=== PATIENT | female | born 1965 | race Caucasian/White ===

== ENCOUNTER 2021-02-14 07:52 | Day surgery (SDC) | payer OTHER ==
[~2021-02-14] VITALS: Ht 162.6 cm; Wt 75.0 kg
[2021-02-14 08:30] VITALS: BP 175/102
--- NOTE | 2021-02-14 08:30 | NUR ---
PATIENT AMBULATORY TO ROOM 290 WITH STEADY GAIT. CONSENT OBTAINED. VS OBTAINED. DR HDZ NOTIFIED. NEW ORDERS RECEIVED. ADMISSION ASSESSMENT COMPLETED AT THIS TIME. IV ESTABLISHED AND LABS SENT FOR REFERENCE. ORIENTED PATIENT TO ROOM AND UNIT. CALL LIGHT IN REACH. WILL CONTINUE TO MONITOR.
[2021-02-14] MEDS ORDERED: CLONIDINE0.1 MG PO (09:20)
[2021-02-14] MEDS ORDERED: NALTREXONE50 MG PO (09:21)
[2021-02-14] MEDS ORDERED: KLONOPIN0.5 MG PO (09:21)
--- NOTE | 2021-02-14 09:56 | NUR ---
REPORT RECEIVED FROM MUSTAPHA RODRIGUEZ. PATIENT STATED SHE IS COLD AND SLEEPY. PROVIVED PATIENT WITH A WARM BLANKET. PATIETN DENIES ANY OTHER NEEDS AT THIS TIME. CALL LIGHT IN REACH.
--- NOTE | 2021-02-14 10:31 | NUR ---
DR. HDZ AWARE OF VS. NO NEW ORDERS RECEIVED AT THIS TIME.
[2021-02-14 10:35] VITALS: BP 112/67
[2021-02-14 11:29] LABS: HEMOGLOBIN 12.7 g/dl (12.0-16.0); IMMATURE GRANULOCYTES 0.2 % (0.0-5.0); MEAN CELL VOLUME 97.5 fL CALC (80.0-100.0); MEAN CORPUSCULAR HGB 31.8 pG CALC (26.0-32.0); MEAN CORPUSCULAR HGB CONC 32.6 g/dL CAL (32.0-36.0); NEUT# 2.95 thou/uL (2.00-7.15); RED CELL DISTRI WIDTH 12.6 % (11.5-15.5)
[2021-02-14 11:30] LABS: ALBUMIN 3.8 g/dL (3.2-5.0); ALKALINE PHOSPHATASE 43 u/l (38-126); ANION GAP 9 (6-22 (CALC)); BILIRUBIN, TOTAL 0.3 mg/dL (0.0-1.4); BUN 17 mg/dL (7-17); BUN/CREATININE RATIO 21 (12-20 (CALC)); CARBON DIOXIDE 27 mmol/l (22-30); CHLORIDE 108 mmol/l (95-108); CREATININE 0.8 mg/dL (0.5-1.0); GFR > 60 ML/MIN (>=60 (CALC)); GFR FOR AFR.AMER. > 60 ML/MIN (>=60 (CALC)); POTASSIUM 4.5 mmol/l (3.5-5.1); SGOT/AST 21 u/l (14-36); SODIUM 139 mmol/l (137-146); TOTAL PROTEIN 6.9 g/dL (6.3-8.2)
--- NOTE | 2021-02-14 11:55 | NUR ---
PATIENT IS SLEEPING IN BED WITH NO DISTRESS NOTED. CALL LIGHT IN REACH.
--- NOTE | 2021-02-14 12:37 | NUR ---
PATIENT WENT VIA BED BY TO TRAUMA ROOM.
[2021-02-14 16:55] VITALS: BP 121/57
--- NOTE | 2021-02-14 16:55 | NUR ---
PATIENT CAME FROM TRAUMA ROOM VIA BED BY AUREA FISCHER NURSE. REPORT RECEIVED FROM AUREA. PER DR. HDZ OBTAIN X1 VS NOW AND LET PATIENT REST. PATIENT IS RESTLESS IN BED KEEPS MOVING ARMS. PATIENT IS DROWSY. BED ALARM PLACE.
--- NOTE | 2021-02-14 17:48 | NUR ---
PATIENT IS RESTLESS IN BED TRYING TO GET OUT OF THE BED AND IS UNSTEADY. GREEN BRIEF IN PLACE. PATIENT KEEPS SETTING THE BED ALARM. MEDICATED PATIENT WITH ATIVAN. BED ALARM IN PLACE.
--- NOTE | 2021-02-14 18:20 | NUR ---
PATIENT SETOFF THE BED ALARM. PATIENT STATED SHE WANTS TO PEE. ASSISTANT PORTFOLIO MANAGER AND I ASSISTED PATIENT TO THE BSC. PATIENT IS UNSTEADY. PATIENT UNABLE TO VOID TURN ON WATER FROM THE SINK. WE ASSISTED PATIENT BACK IN BED. PATIENT DID NOT VOID. BED ALARM IN PLACE.
[2021-02-14 19:15] VITALS: BP 136/81
--- NOTE | 2021-02-14 19:25 | NUR ---
PATIENT CONT TO BE RESTLESS. SETTING OFF BED ALRM AND ATTEMPTING TO GET OOB SEVERAL TIMES. ASSIST TO BSC TO VOID 500CC OF YELLOW URINE. VERY UNSTEADY ON HER FEET. THRASHING ABOUT IN BED. VS TAKEN AND STABLE-BP 136/81, PULSE-88, RESP 18 AND STABLE WITH O2 SAT OF 99%. SA;INE LOCK TO LEFT HAND AND RIGHT FOREARMINTACT AND FLUSHED. CIVIL ENGINEER HELPER AT BEDSIDE. WILL CONT TO MONITOR.
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
[2021-02-14 21:35] VITALS: BP 127/79
--- NOTE | 2021-02-14 21:57 | NUR ---
PATIENT CONT TO BE VERY AGITATED AND RESTLESS-CLIMBING OUT OF BED AND SETTING OFF BED ALARMS CONSTANTLY EVEN WITH HEAVY MOBILE EQUIPMENT REPAIRER AT BEDSIDE. PATIENT MEDICATED WITH ATIVAN 2MG IVP VIA RAC SITE ORDERED. ALSO MEDICATED WITH ZOFRAN 4MG IVP FOR NAUSEA. STILL WITH GOOD BLOOD RETURN FROM RAC IV SITE. VS WERE TAKEN AND [id number]/79, PULSE-80 AND RESP-17 WITH O2 SAT OF 98%. PATIENT IS NOW BACK IN BED WITH HEAVY MOBILE EQUIPMENT REPAIRER AT BEDSIDE FOR PATIENT SAFETY. BED ALARM IN PLACE. WILL CONT TO MONITOR.
--- NOTE | 2021-02-14 23:41 | NUR ---
PATIENT CONT TO BE UNCOOPERATIVE, RESTLESS AND CLIMBING OUT OF THE BED. PATIENT IS CONFUSED AND MUMBLING WANTS TO GO EVEN AFTER BEING MEDICATED EARLIER. BED ALARM IN PLACE AND CONSTANTLY GOING OFF BECAUSE OF PATIENT CONSTANTLY TRYING TO GET OOB. COORDINATE MEASURING MACHINE TECHNICIAN REMAINS AT BEDSIDE FOR PATIENT SAFETY. WILL CONT TO MONIOR.
--- NOTE | 2021-02-15 00:30 | NUR ---
PATIENT AGAIN TRYING TO GET OOB-STATES THAT SHE HAS TO PEE-PATIENT IS VERY UNSTAEADY ON HER FEET AND ASSISTED TO BR-NOT ABLE TO URINATE AT HIS TIME-SHAKING HER HEAD SHE SIT ON THE TOILET. ASSIST BACK TO THE BED-VERY UNSTEADY ON HER FEET AND FLOPPED INTO BED. COVERED WITH BLANKETS. BED ALARM BACK IN PLACE. MONITORING PATIENT AT BEDSIDE FOR PATIENT SAFETY.
--- NOTE | 2021-02-15 00:49 | NUR ---
PATIENT AGAIN TRYING TO GET OOB BED-ASSISTED BACK INTO BED. PATIENT WITH NON-PRODUCTIVE COUGH. ASSISTED PATIENT WITH ORAL HYGEINE AND OFFER HER DRINK OF WATER BUT SHE DECLINED. BED ALARM IN PLACE. WILL CONT TO MONITOR AT BEDSIDE FOR PATIENT SAFETY
--- NOTE | 2021-02-15 01:00 | NUR ---
PATIENT AGAIN CLIMBING OUT OF BED AND SETTING OF BED ALARMS. REMAINS VERY UNSTEADY ON HER FEET AND STATES THAT SHE HAS TO GO TO THE BR. ASSISTED AGAAIN TO THE BR AND VOIDED 100+CC OF CLEAR YELLOW URINE AND SMALL BROWN STOOL. STILL THRASHING ABOUT WHEN TRYING TO HELP PATIENT BACK TO BED. BED ALARM BACK IN PLACE. MONITORING PATIENT AT BEDSIDE FOR PATIENT SAFETY.
--- NOTE | 2021-02-15 01:49 | NUR ---
PATIENT CONT TO BE RESTLESS AND ATTEMPTING TO GET OOB OVER THE SIDERAILS. MOANING OUT LOUD, THRASHING ABOUT IN THE BED. MEDICATED WITH ATIVAN 2MG IVP VIA LEFT HAND SITE ORDERED FOR HIGH ANXIETY AND AGITATION. BED ALRM REMAINS IN PLACE FOR PATIENT SAFETY. MONITORING PATIENT AT BEDSIDE FOR PATIENT SAFETY.
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
--- NOTE | 2021-02-15 02:30 | NUR ---
PATIENT CONT TO BE RESTLESS THASHING ABOUT IN THE BED WITH JERKING MOTIONS, PATIENT ASSISTED TO THE BR AGAIN AND VOIDED 200CC OF YELLOW URINE. ASSISTED BACK TO THE BED. SALINBE LOCK TO LEFT HAND REMAINS IN PLACE AT THIS TIME. BED ALARM IN PLACE FOR PATIENT SAFETY. CONT TO MONITOR AT BEDSIDE FOR PATIENT SAFETY.
--- NOTE | 2021-02-15 03:44 | NUR ---
CONT TO BE RESTLESS AND ASKING TO GO TO THE RECLINER-ASSISTED TO THE RECLINER-STILL VERY UNSTEADY ON HER FEET. TAKING PO FLUIDS AND TOLERATING WELL. PATIENT CONT TO MOAN OUT OLOAD AND NOW IS KICKING BOTH OF HER LEGS OUT WHILE IN RECLINER. MONITORING AT BEDSIDE FOR PATIENT SAFETY. WILL CONT TO MONITOR.
[2021-02-15 04:00] VITALS: BP 132/69
--- NOTE | 2021-02-15 04:31 | NUR ---
PATIENT ASSISTED TO BR TO VOID 400CC OF YELLOW URINE. ASSISTED BACK TO BED-STILL VERY UNSTEADY ON HER FEET. LAB WORK DRAWN ORDERED FROM RIGHT AC. VS TAKEN AND RECORDED. MONITORING PATIENT AT BEDSIDE.
[2021-02-15 04:54] LABS: HEMATOCRIT 37.7 % (37.0-47.0); HEMOGLOBIN 12.7 g/dl (12.0-16.0); IMMATURE GRANULOCYTES 0.1 % (0.0-5.0); MEAN CELL VOLUME 95.7 fL CALC (80.0-100.0); MEAN CORPUSCULAR HGB 32.2 pG CALC (26.0-32.0); MEAN CORPUSCULAR HGB CONC 33.7 g/dL CAL (32.0-36.0); NEUT# 6.36 thou/uL (2.00-7.15); RED BLOOD COUNT 3.94 mill/uL (4.20-5.60); RED CELL DISTRI WIDTH 12.4 % (11.5-15.5)
[2021-02-15 04:58] LABS: ALBUMIN 4.3 g/dL (3.2-5.0); ALKALINE PHOSPHATASE 49 u/l (38-126); ANION GAP 13 (6-22 (CALC)); BUN 12 mg/dL (7-17); BUN/CREATININE RATIO 16 (12-20 (CALC)); CARBON DIOXIDE 25 mmol/l (22-30); CHLORIDE 107 mmol/l (95-108); CREATININE 0.8 mg/dL (0.5-1.0); GFR > 60 ML/MIN (>=60 (CALC)); GFR FOR AFR.AMER. > 60 ML/MIN (>=60 (CALC)); MAGNESIUM 2.4 mg/dL (1.6-2.3); POTASSIUM 4.1 mmol/l (3.5-5.1); SGOT/AST 27 u/l (14-36); SODIUM 141 mmol/l (137-146); TOTAL PROTEIN 7.2 g/dL (6.3-8.2)
[2021-02-15 05:08] LABS: BILIRUBIN, TOTAL 0.6 mg/dL (0.0-1.4)
--- NOTE | 2021-02-15 05:09 | NUR ---
BED ALRM GOING OFF AND PATIENT IS CLIMBING OVER THE SIDERAILS. STATES THAT SHE HAS TO GO TO THE BR AAGIN-STILL VERY UNSTEADY ON HER FEET. VOIDED 200CC OF YELLOW URINE AND ASSISTED ABCK TO BED. SALINE LOCK TO LEFT HAND REMAINS INTACT. REMAINS EXTREMELY IMPULSIVE. BED ALARM IN PLACE. MONITORING PATIENT AT BEDSIDE FOR PATIENT SAFETY.
--- NOTE | 2021-02-15 07:00 | NUR ---
REPORT FROM MELISSA LUCIANO. ASSUMED PT CARE.
[2021-02-15 08:59] VITALS: BP 113/59
--- NOTE | 2021-02-15 08:59 | NUR ---
PT NOTED RESTING IN BED WITH SITTER AT BEDSIDE. PT WAKES EASILY. DROWSY BUT ORIENTED. PT MEDICATED ORDERED. PT DENIES ANY PAIN OR NAUSEA. NO APPARENT DISTRESS NOTED. VSS. PT TOLERATING PO FLUIDS. CALL LIGHT WITHIN REACH. WILL CONTINUE TO MONITOR.
--- NOTE | 2021-02-15 12:05 | NUR ---
PT RESTING IN BED WITH EYES CLOSED. NO APPARENT DISTRESS NOTED. RESPIRATIONS EVEN AND UNLABORED. CALL LIGHT WITHIN REACH. WILL CONTINUE TO MONITOR.
[2021-02-15 12:55] VITALS: BP 125/76
--- NOTE | 2021-02-15 15:00 | NUR ---
IV site discontinued, cath intact. No edema , no redness, voices no discomfort.
--- NOTE | 2021-02-15 15:17 | NUR ---
Discharge instructions given. Patient verbalizes understanding of same. Discharged in stable condition via Ambulatory to Home with family. All belongings sent with pt.
== END 2021-02-15 15:17 | disposition home or self-care (01) | DRG 897 ==
LOC: ANR 07:52 → MS2 07:52 → ANR 02-15 15:17
PROVIDERS: ATTEND Anesthesiology
DX: F11.20 Opioid dependence, uncomplicated (principal)
CPT/HCPCS: J2060; J2354

== ENCOUNTER 2022-09-15 07:06 | Day surgery (SDC) | payer OTHER ==
[~2022-09-15] VITALS: Ht 162.6 cm; Wt 67.0 kg
[2022-09-15] VITALS (53 sets, daily range): BP systolic 100–164; BP diastolic 59–101
[~2022-09-15 07:06] MED LIST: CLONIDINE0.1 MG PO; KLONOPIN0.5 MG PO; NALTREXONE50 MG PO
[2022-09-15 08:21] LABS: BASO% 0.3 % (0-3); EOS% 2.3 % (0-8); HEMATOCRIT 40.4 % (37.0-47.0); HEMOGLOBIN 13.1 g/dl (12.0-16.0); LYMPH% 16.3 % (15-41); MEAN CELL VOLUME 97.8 fL CALC (80.0-100.0); MEAN CORPUSCULAR HGB 31.7 pG CALC (26.0-32.0); MEAN CORPUSCULAR HGB CONC 32.4 g/dL CAL (32.0-36.0); NEUT# 4.79 thou/uL (2.00-7.15); NEUT% 69.1 % (42-76); RED BLOOD COUNT 4.13 mill/uL (4.20-5.60); RED CELL DISTRI WIDTH 12.6 % (11.5-15.5)
[2022-09-15 08:36] LABS: ALBUMIN 4.4 g/dL (3.2-5.0); ALKALINE PHOSPHATASE 47 u/l (38-126); ANION GAP 12 (6-22 (CALC)); BUN 17 mg/dL (7-17); BUN/CREATININE RATIO 21 (12-20 (CALC)); CARBON DIOXIDE 29 mmol/l (22-30); CHLORIDE 104 mmol/l (95-108); CREATININE 0.8 mg/dL (0.5-1.0); GFR FOR AFR.AMER. > 60 ML/MIN (>=60 (CALC)); GFR OTHER RACES > 60 ML/MIN (>=60 (CALC)); POTASSIUM 4.1 mmol/l (3.5-5.1); SGOT/AST 23 u/l (14-36); SODIUM 140 mmol/l (137-146); TOTAL PROTEIN 7.3 g/dL (6.3-8.2)
[2022-09-15 08:37] LABS: BILIRUBIN, TOTAL 0.2 mg/dL (0.02-1.3)
[2022-09-15] MEDS ORDERED: LISINOPRIL20 M1 PO (08:42)
[2022-09-15] MEDS ORDERED: PRILOSEC OTC20 MG PO (09:26)
[2022-09-15] MEDS ORDERED: NALTREXONE50 MG PO (14:06)
[2022-09-15] MEDS ORDERED: CLONIDINE0.1 MG PO (14:07)
[2022-09-15] MEDS ORDERED: KLONOPIN2 MG PO (14:07)
[2022-09-16 03:57] LABS: HEMATOCRIT 41.3 % (37.0-47.0); HEMOGLOBIN 13.8 g/dl (12.0-16.0); IMMATURE GRANULOCYTES 0.2 % (0.0-5.0); LYMPH% 3.3 % (15-41); MEAN CELL VOLUME 95.2 fL CALC (80.0-100.0); MEAN CORPUSCULAR HGB 31.8 pG CALC (26.0-32.0); MEAN CORPUSCULAR HGB CONC 33.4 g/dL CAL (32.0-36.0); MONO% 5.3 % (2-13); NEUT# 11.38 thou/uL (2.00-7.15); NEUT% 91.2 % (42-76); RED BLOOD COUNT 4.34 mill/uL (4.20-5.60); RED CELL DISTRI WIDTH 12.2 % (11.5-15.5)
[2022-09-16 04:08] LABS: ALBUMIN 4.2 g/dL (3.2-5.0); ALKALINE PHOSPHATASE 47 u/l (38-126); ANION GAP 12 (6-22 (CALC)); BUN 12 mg/dL (7-17); BUN/CREATININE RATIO 17 (12-20 (CALC)); CARBON DIOXIDE 24 mmol/l (22-30); CHLORIDE 109 mmol/l (95-108); CREATININE 0.7 mg/dL (0.5-1.0); GFR FOR AFR.AMER. > 60 ML/MIN (>=60 (CALC)); GFR OTHER RACES > 60 ML/MIN (>=60 (CALC)); MAGNESIUM 2.4 mg/dL (1.6-2.3); POTASSIUM 4.3 mmol/l (3.5-5.1); SGOT/AST 28 u/l (14-36); SODIUM 140 mmol/l (137-146); TOTAL PROTEIN 6.9 g/dL (6.3-8.2)
[2022-09-16 04:15] LABS: BILIRUBIN, TOTAL 0.4 mg/dL (0.02-1.3)
[2022-09-16 04:32] VITALS: BP 137/75
[2022-09-16 07:06] VITALS: BP 126/76
[2022-09-16 07:20] VITALS: BP 126/76
[2022-09-16 09:26] VITALS: BP 126/76
== END 2022-09-16 16:32 | disposition home or self-care (01) | DRG 897 ==
LOC: ANR 07:06 → MS2 07:06 → ANR 09:00 → MS2 17:59 → ANR 09-16 16:32
PROVIDERS: ATTEND Anesthesiology Critical Care Medicine
DX: F11.20 Opioid dependence, uncomplicated (principal)
CPT/HCPCS: J2060; J2354; J3475